=== PATIENT | female | born 1960 | race Caucasian/White ===

== ENCOUNTER 2018-11-30 18:02 | Inpatient (IN) | payer MEDICARE, MEDICAID ==
[~2018-11-30] VITALS: Ht 158.7 cm; Wt 58.6 kg
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
--- NOTE | ~2018-11-30 | PN ---
[place], [place] PROGRESS NOTE NAME: GRECIA PETERSON UNIT #: [id number] ROOM: 311 DOCTOR: PEARL AHN MD BIRTHDATE: [birth year] DATE: 12/17/18 ADDENDUM: Resident note reviewed. Agree with observations, recommendations, and overall treatment plan. PEARL AHN MD CM:PNTRANS 1135 1140 PEARL AHN MD 12/25/18 1140 [facility] M[facility].LLR
--- NOTE | ~2018-11-30 | PR ---
[place], [place] PROGRESS NOTE NAME: GRECIA PETERSON UNIT #: [id number] ROOM: 311 DOCTOR: MAXX THOMPSON CNP BIRTHDATE: [birth year] DOS: 12/13/2018 CHIEF COMPLAINT: "I am very good." SUMMARY OF VISIT: The patient was interviewed as she lies in her bed. She did not engage much in conversation with me. Her eye contact was poor. The patient reports that she did sleep okay and that her appetite is somewhat improved. Staff reports that the patient was more interactive yesterday with peers. She did spend time in the dining room. She did sleep 7 hours last night. The patient does have a VPA level ordered for 12/15/2018. MENTAL STATUS EXAMINATION: The patient was alert and oriented to person, place and time. She was pleasant. No curt or hypomania noted. No delusions or paranoia noted. No psychotic symptoms noted. No auditory or visual hallucinations noted. The patient's mood is calm. No aggression or agitation noted. Affect is congruent with mood. PLAN: I did increase the patient's Remeron to 30 mg at bedtime to combat depression symptoms. The patient does have a VPA ordered for Friday. We will continue to monitor the patient for tolerability and side effects of the medication. Continue to encourage the patient to engage in individual and hernandez milieu activity. Continue fall and safety precautions. Plan is to return the patient to the least restrictive environment when she is considered psychiatrically stable. Maxx Thompson CNP CM:PNTRANS [id number] MAXX THOMPSON CNP 12/14/18 0028 interface
--- NOTE | ~2018-11-30 | PR ---
[place], [place] PROGRESS NOTE NAME: GRECIA PETERSON UNIT #: [id number] ROOM: 311 DOCTOR: MAXX THOMPSON CNP BIRTHDATE: [birth year] DOS: 12/11/2018 CHIEF COMPLAINT: "I am not very happy, so just leave me alone." SUMMARY OF THE VISIT: The patient was interviewed as she is lying in her bed. She did not want to engage in conversation with me. Her eye contact was poor. The patient reports that she is not going to tell me how she feels because I can't help her anyway. Staff reports that the patient is refusing meals yesterday, was not come out of her room. She continues to isolate. Her mood has been irritable and agitated. MENTAL STATUS EXAMINATION: The patient is alert and oriented. She was irritable and not cooperative. No overt curt or hypomania noted. No delusions or paranoia noted. No auditory or visual hallucinations noted. The patient's mood is agitated. No aggression. Affect is congruent with mood. PLAN: We will continue the patient's medications as prescribed. She was started on Remeron yesterday and this may take a little bit of time to become effective and started to notice some improvement. She also has a VPA level pending for 12/12/2018. I have also ordered a serum ammonia level for 12/12/2018 as well to rule out increased serum ammonia levels, which could lead to increased agitation and irritability. Plan to encourage the patient to engage in individual and hernandez milieu activities. Encourage the patient to eat her meals. Continue fall and safety precautions. Plan to return the patient to least restrictive environment when she is considered psychiatrically stable. Maxx Thompson CNP CM:PNTRANS 09 [id number] MAXX THOMPSON CNP 12/11/18 1030 interface
--- NOTE | ~2018-11-30 | PR ---
[place], [place] PROGRESS NOTE NAME: GRECIA PETERSON UNIT #: [id number] ROOM: 311 DOCTOR: PEARL AHN MD BIRTHDATE: [birth year] DOS: 12/20/2018 CHIEF COMPLAINT: "Oh, good morning, thank you." SUMMARY OF THE VISIT: The patient was interviewed as she was sitting eating breakfast. She smiled upon approach. She has been much brighter and much more willing to attempt to converse, although she does have a significant amount of thought blocking and processing difficulty. MENTAL STATUS: She is alert and oriented to self, unclear place, certainly not time. Mood for the most part is euthymic. Affect is much more appropriate. There is no curt or hypomania. There is no gross psychosis. There is no EPS or tardive dyskinesia, sedation or somnolence. PLAN: I will maintain her current psychotropic regimen. Her valproic acid level has come down now and it is therapeutic at 74.2. I see no signs of toxicity or other side effects. We will continue to monitor and support, engage in individual and hernandez milieu activity, returning to the least restrictive environment when psychiatrically stable. PEARL AHN MD CM:PNTRANS 1 8 PEARL AHN MD 12/20/18908 interface
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
--- NOTE | ~2018-11-30 | PN ---
[place], [place] PROGRESS NOTE NAME: GRECIA PETERSON UNIT #: [id number] ROOM: 311 DOCTOR: PEARL AHN MD BIRTHDATE: [birth year] DATE: 12/15/18 ADDENDUM: Resident note reviewed. Agree with observations, recommendations, and overall treatment plan. PEARL AHN MD CM:PNTRANS 1135 1140 PEARL AHN MD 12/25/18 1140 [facility] M[facility].LLR
--- NOTE | ~2018-11-30 | PN ---
[place], [place] PROGRESS NOTE NAME: GRECIA PETERSON UNIT #: [id number] ROOM: 311 DOCTOR: PEARL AHN MD BIRTHDATE: [birth year] DATE: 12/04/18 ADDENDUM: Resident note reviewed. Agree with observations, recommendations, and overall treatment plan. PEARL ANH MD CM:PNTRANS 1135 1137 PEARL AHN MD 12/25/18 1138 [facility] MIS.LLR
--- NOTE | ~2018-11-30 | PR ---
[place], [place] PROGRESS NOTE NAME: GRECIA PETERSON UNIT #: [id number] ROOM: 311 DOCTOR: PEARL AHN MD BIRTHDATE: [birth year] DOS: 12/10/2018 INTERVAL NOTE CHIEF COMPLAINT: "I am okay." SUMMARY OF THE VISIT: The patient was once again interviewed as she was resting in bed. She was a little less terse and irritable, but did rather dismissively say she was okay and she did not need anything. Nurses report overall there seems to be a general trend improvement in her disposition and she seems much less irritable and angry. Her valproic acid level is high at 103.5, but I see no signs of toxicity. I did not see tremor or excessive sedation. MENTAL STATUS: She remains alert and oriented to person, unclear place, certainly not time. Mood does seem to be trending towards euthymia. Affect is more appropriate. There is no curt or hypomania. There is no gross psychosis. Short-term memory is very problematic. PLAN: I will recheck a valproic acid level in the a.m. on 12/21/2018 to make certain that it is stable and not continuing to increase, engage in individual and hernandez milieu activity, returning to the least restrictive environment when stable. PEARL AHN MD CM:PNTRANS 0834 1209 PEARL AHN MD 12/10/18 1210 interface
--- NOTE | ~2018-11-30 | PN ---
[place], [place] PROGRESS NOTE NAME: GRECIA PETERSON UNIT #: [id number] ROOM: 311 DOCTOR: PEARL AHN MD BIRTHDATE: [birth year] DATE: 12/03/18 ADDENDUM: Resident note reviewed. Agree with observations, recommendations, and overall treatment plan. PEARL AHN MD CM:PNTRANS 1135 1137 PEARL AHN MD 12/25/18 1137 [facility] MIS.LLR
--- NOTE | ~2018-11-30 | PR ---
[place], [place] PROGRESS NOTE NAME: GRECIA PETERSON UNIT #: [id number] ROOM: 311 DOCTOR: PEARL AHN MD BIRTHDATE: [birth year] DOS: 12/07/2018 INTERVAL NOTE CHIEF COMPLAINT: "I don't need anything." SUMMARY OF THE VISIT: The patient was attempted to be interviewed as she was resting in bed. As I approached and called out her name, she was very terse and short with me once again reporting that she did not need anything. She did not attempt any physical aggression and her level of verbal altercation was just in the tone of her voice and nothing more. Outwardly, she does seem to be tolerating the current medication regimen well without sedation, somnolence, extrapyramidal symptoms or tardive dyskinesia. MENTAL STATUS: She is alert and oriented to self, possibly place, but not time. Mood does seem to be still labile. Affect at times is inappropriate. Her responses are short and terse. There are no auditory or visual hallucinations, delusions or paranoia. Short-term memory is poor. PLAN: I will renew her p.r.n. Ativan should she require intervention. I will increase Depakote Sprinkles from 250 mg 3 times a day to 250 mg twice a day and 500 mg at bedtime. We will engage in individual and hernandez milieu activity, returning to the least restrictive environment when psychiatrically stable. PEARL AHN MD CM:PNTRANS 0831 1236 PEARL AHN MD 12/07/18 1235 interface
--- NOTE | ~2018-11-30 | PR ---
[place], [place] PROGRESS NOTE NAME: GRECIA PETERSON UNIT #: [id number] ROOM: 311 DOCTOR: MAXX THOMPSON CNP BIRTHDATE: [birth year] DOS: 12/12/2018 CHIEF COMPLAINT: "I feel less irritable today." SUMMARY OF THE VISIT: The patient was interviewed as she sat in the activities room participating in activity. The patient reports that she slept well last night. She reports that her appetite is improved a little bit that she did not eat breakfast. Staff reports that the patient has been coming out of her room and participating in some social activity. She was reporting to the staff yesterday afternoon that she still feels crappy; however, today her mood seems to be improved. MENTAL STATUS EXAMINATION: The patient is alert and oriented. She was actually pleasant and cooperative with me. No overt curt or hypomania noted. No delusions or paranoia noted. No psychotic symptoms noted. No auditory or visual hallucinations noted. The patient's mood was calm. No agitation or irritability. No aggression. Affect is congruent with mood. PLAN: The patient's VPA level came back a little elevated at 105.4. We will decrease the patient's Depakote to 250 mg 3 times a day from 250 twice a day and 500 at bedtime. We will recheck a VPA level on Friday. We will continue to monitor. Encourage the patient to engage in individual and hernandez milieu activity. Continue fall and safety precautions. Plan is to return the patient to the least restrictive environment when she is considered psychiatrically stable. Maxx Thompson CNP CM:PNTRANS 1235 0845 MAXX THOMPSON CNP 12/13/18 0845 interface
--- NOTE | ~2018-11-30 | PN ---
[place], [place] PROGRESS NOTE NAME: GRECIA PETERSON UNIT #: [id number] ROOM: 311 DOCTOR: PEARL AHN MD BIRTHDATE: [birth year] DATE: 12/09/18 ADDENDUM: Resident note reviewed. Agree with observations, recommendations, and overall treatment plan. PEARL AHN MD CM:PNTRANS 1135 1138 PEARL AHN MD 12/25/18 1139 [facility].LLR
--- NOTE | ~2018-11-30 | PN ---
[place], [place] PROGRESS NOTE NAME: GRECIA PETERSON UNIT #: [id number] ROOM: 311 DOCTOR: PEARL AHN MD BIRTHDATE: [birth year] DATE: 12/08/18 ADDENDUM: Resident note reviewed. Agree with observations, recommendations, and overall treatment plan. PEARL AHN MD CM:PNTRANS 1135 1138 PEARL AHN MD 12/25/18 1138 [facility] MIS.LLR
--- NOTE | ~2018-11-30 | PN ---
[place], [place] PROGRESS NOTE NAME: GRECIA PETERSON UNIT #: [id number] ROOM: 311 DOCTOR: PEARL AHN MD BIRTHDATE: [birth year] DATE: 12/14/18 ADDENDUM: Resident note reviewed. Agree with observations, recommendations, and overall treatment plan. PEARL AHN MD CM:PNTRANS 1135 1139 PEARL AHN MD 12/25/18 1139 [facility] M[facility].LLR
--- NOTE | ~2018-11-30 | PR ---
[place], [place] PROGRESS NOTE NAME: GRECIA PETERSON UNIT #: [id number] ROOM: 311 DOCTOR: PEARL AHN MD BIRTHDATE: [birth year] DOS: 12/02/2018 CHIEF COMPLAINT: "I don't need anything." SUMMARY OF THE VISIT: The patient was attempted to be interviewed in the hallway. She was walking. She stopped just briefly to interact. Her responses tended to be one word responses or very short responses. When asked if she wanted to have anything to eat, she replied no; anything to drink, she replied no and asked if she needed anything, she replied no, nothing. Nurses report that she does tend to pace, but is not truly exit seeking, but rather just constantly walking. She redirects with verbal prompting. She has been more compliant with her medicines here and is not exhibiting any sedation or somnolence. MENTAL STATUS: She is alert and oriented to self only. It is unclear if she realizes she is even in the hospital. She is certainly not oriented to time. Mood does seem to be rather labile still, but redirectable. There is no curt, hypomania and no psychosis. Short term memory is very poor and she processes conversation slowly. PLAN: I will maintain her current psychotropic regimen. Routine screening examinations revealed her to have a low vitamin D level of 26.3, so I will start vitamin D 5000 International Units daily. Her vitamin B12 level is low normal at 344. I will start vitamin B12 injection 1000 mcg IM monthly. We will continue to engage in individual and hernandez milieu activity, returning to the least restrictive environment when psychiatrically stable. PEARL AHN MD CM:PNTRANS 0845 0100 PEARL AHN MD 12/03/18 0410 interface
[2018-11-30] MEDS ORDERED: CALCIUM CITRAT1 EAC9 PO (18:13)
[2018-11-30] MEDS ORDERED: CENTRUM SILVER1 EACH PO (18:14)
[2018-11-30] MEDS ORDERED: EXELON1 EAC1 T (18:15)
[2018-11-30] MEDS ORDERED: NAMENDA-28 PO (18:17)
[2018-11-30] MEDS ORDERED: LISINOPRIL20 MG PO (18:17)
[2018-11-30] MEDS ORDERED: PREMPRO 0.625-1 EACH PO (18:18)
[2018-11-30] MEDS ORDERED: RISPERIDONE M-TA1 MG PO (18:19)
[2018-11-30 20:57] VITALS: BP 141/87
[2018-11-30 23:08] VITALS: BP 141/87
[2018-12-01 01:17] LABS: BILIRUBIN NEGATIVE (NEGATIVE); BLOOD TRACE-INTACT (NEGATIVE); CLARITY CLEAR (CLEAR); COLOR YELLOW (YELLOW); GLUCOSE NEGATIVE (NEGATIVE); KETONE NEGATIVE (NEGATIVE); LEUKO ESTERASE NEGATIVE (NEGATIVE); NITRITE NEGATIVE (NEGATIVE); PH 5.5 (5.0-9.0); SPECIFIC GRAVITY <= 1.005 (1.005-1.030); UROBILINOGEN 0.2 E.U./dl (0.2-1.0)
[2018-12-01 07:26] VITALS: BP 132/80
[2018-12-01 07:44] LABS: BASO # 0.1 10*3/uL (0.0-0.1); EOS # 0.1 10*3/uL (0.0-0.4); EOS % 2.1 % (1.0-4.0); HEMATOCRIT 39.8 % (37.0-47.0); HEMOGLOBIN 13.4 g/dl (12.0-16.0); LYMPH # 2.1 10*3/uL (1.3-4.4); LYMPH % 34.5 % (27.0-41.0); MEAN CELL VOLUME 96.6 fl (81.0-99.0); MEAN CORPUSCULAR HGB 32.5 pg (27.0-31.0); MEAN CORPUSCULAR HGB CONC 33.7 g/dl (33.0-37.0); MEAN PLATELET VOLUME 10.9 fl (9.6-12.3); MONO # 0.5 10*3/uL (0.1-1.0); MONO % 7.7 % (3.0-9.0); NEUT # 3.3 10*3/uL (2.3-7.9); NEUT % 54.5 % (47.0-73.0); PLATELET COUNT AUTOMATED 224 10*3/uL (130-400); RED BLOOD COUNT 4.12 10*6/uL (4.10-5.10); RED CELL DISTRI WIDTH 13.6 % (0-14.5); WHITE BLOOD COUNT 6.1 10*3/uL (4.8-10.8)
[2018-12-01 08:12] LABS: ALKALINE PHOSPHATASE 54 U/L (45-117); BUN 11 mg/dl (7-24); CHLORIDE 107 mmol/L (98-107); CHOLESTEROL 175 mg/dL (<200); CREATININE 0.69 mg/dL (0.55-1.02); HDL CHOLESTEROL 61 mg/dl (40-60); LDL CHOLESTEROL 97 mg/dL (9-159); POTASSIUM 3.7 mmol/L (3.5-5.1); SGOT/AST 4 IU/L (3-35); SGPT/ALT 14 U/L (12-78); SODIUM 143 mmol/L (136-145); TRIGLYCERIDES 85 mg/dl (<150); VLDL CHOLESTEROL 17 mg/dL (6-40)
[2018-12-01 08:46] VITALS: BP 132/80
[2018-12-01 08:54] LABS: VITAMIN D, 25-HYDROXY 26.3 ng/mL (30-100)
[2018-12-01 20:00] VITALS: BP 130/82
[2018-12-02 07:55] VITALS: BP 129/76
[2018-12-02 19:45] VITALS: BP 107/64
[2018-12-03 07:49] VITALS: BP 120/58
[2018-12-03 20:00] VITALS: BP 110/58
[2018-12-04 07:32] VITALS: BP 114/61
[2018-12-04 20:00] VITALS: BP 132/68
[2018-12-05 08:00] VITALS: BP 127/64
[2018-12-05 20:14] VITALS: BP 120/78
[2018-12-06 07:20] VITALS: BP 138/69
[2018-12-06 19:01] VITALS: BP 117/62
[2018-12-07 07:47] VITALS: BP 115/64
[2018-12-07 20:00] VITALS: BP 120/64
[2018-12-08 07:39] VITALS: BP 114/65
[2018-12-08 20:35] VITALS: BP 118/69
[2018-12-09 07:40] VITALS: BP 121/65
[2018-12-09 20:14] VITALS: BP 125/75
[2018-12-10 07:55] VITALS: BP 122/73
[2018-12-10 08:04] LABS: VALPROIC ACID (DEPAKENE) 103.5 ug/ml (50-100)
[2018-12-10 20:00] VITALS: BP 123/59
[2018-12-11 10:00] VITALS: BP 129/64
[2018-12-11 20:43] VITALS: BP 137/69
[2018-12-12 07:51] VITALS: BP 99/53
[2018-12-12 11:42] LABS: BASO % 0.4 % (0.0-1.0); EOS # 0.1 10*3/uL (0.0-0.4); EOS % 1.2 % (1.0-4.0); HEMATOCRIT 44.6 % (37.0-47.0); HEMOGLOBIN 14.9 g/dl (12.0-16.0); LYMPH # 1.5 10*3/uL (1.3-4.4); LYMPH % 19.7 % (27.0-41.0); MEAN CELL VOLUME 96.1 fl (81.0-99.0); MEAN CORPUSCULAR HGB 32.1 pg (27.0-31.0); MEAN CORPUSCULAR HGB CONC 33.4 g/dl (33.0-37.0); MEAN PLATELET VOLUME 10.9 fl (9.6-12.3); MONO # 0.6 10*3/uL (0.1-1.0); MONO % 8.1 % (3.0-9.0); NEUT # 5.3 10*3/uL (2.3-7.9); NEUT % 70.3 % (47.0-73.0); PLATELET COUNT AUTOMATED 292 10*3/uL (130-400); RED BLOOD COUNT 4.64 10*6/uL (4.10-5.10); RED CELL DISTRI WIDTH 13.5 % (0-14.5); WHITE BLOOD COUNT 7.6 10*3/uL (4.8-10.8)
[2018-12-12 11:55] LABS: BUN 12 mg/dl (7-24); CHLORIDE 102 mmol/L (98-107); PHOSPHOROUS 2.3 mg/dL (2.5-4.9); POTASSIUM 4.1 mmol/L (3.5-5.1); SODIUM 141 mmol/L (136-145)
[2018-12-12 20:00] VITALS: BP 107/55
[2018-12-13 07:48] VITALS: BP 119/63
[2018-12-13 20:00] VITALS: BP 111/61
[2018-12-14 07:52] VITALS: BP 123/66
[2018-12-14 20:00] VITALS: BP 108/70
[2018-12-15 07:48] VITALS: BP 112/67
[2018-12-15 20:48] VITALS: BP 110/62
[2018-12-16 08:03] VITALS: BP 117/66
[2018-12-16 19:46] VITALS: BP 110/62
[2018-12-17 09:19] VITALS: BP 120/68
[2018-12-17 20:00] VITALS: BP 119/78
[2018-12-18 08:27] VITALS: BP 109/60
[2018-12-18 19:58] VITALS: BP 127/67
[2018-12-19 08:13] VITALS: BP 108/72; BP 115/72
[2018-12-19 19:09] VITALS: BP 106/68
[2018-12-20 07:17] VITALS: BP 102/60; BP 125/63
[2018-12-20 19:16] VITALS: BP 109/68
[2018-12-21] MEDS ORDERED: EXELON13.3 MG/21 T (08:16)
[2018-12-21] MEDS ORDERED: RISPERIDONE M-TA1 MG BC (08:16)
[2018-12-21] MEDS ORDERED: MEMANTINE HCL10 MG PO (08:16)
[2018-12-21] MEDS ORDERED: MIRTAZAPINE30 M2 PO (08:16)
[2018-12-21] MEDS ORDERED: ATARAX,VISTARIL50 MG PO (08:16)
[2018-12-21] MEDS ORDERED: DIVALPROEX SOD125 M1 PO (08:16)
[2018-12-21 08:51] VITALS: BP 107/58
== END 2018-12-21 15:30 | disposition other institution (70) | DRG 883 ==
LOC: 3N 18:02
PROVIDERS: Internal Medicine; ADMIT Psychiatry & Neurology Psychiatry
DX: F63.81 Intermittent explosive disorder (principal); F02.81 Dementia in other diseases classified elsewhere, unspecified severity, with behavioral disturbance; E44.0 Moderate protein-calorie malnutrition; F23 Brief psychotic disorder; F33.9 Major depressive disorder, recurrent, unspecified; F41.9 Anxiety disorder, unspecified; E55.9 Vitamin D deficiency, unspecified; I10 Essential (primary) hypertension; G30.9 Alzheimer's disease, unspecified; F25.9 Schizoaffective disorder, unspecified; Z78.0 Asymptomatic menopausal state; Z88.0 Allergy status to penicillin; Z79.899 Other long term (current) drug therapy; Z68.23 Body mass index [BMI] 23.0-23.9, adult